=== PATIENT | male | born 1940 | race Caucasian/White ===

== ENCOUNTER 2016-09-22 07:48 | Day surgery (SDC) | payer BC, MEDICARE ==
--- NOTE | ~2016-09-22 | EGD ---
EGD REPORT [facility] [address] [address] NAME: MAK WALDRON : 40 STATUS : REG [facility] PAT#: [id number] AGE: 75 ADM/REG DATE : 09/22/16 MR#: [id number] REPORT SERV DATE: 09/22/16 DICTATED BY: LUDA INIGUEZ DATE: 09/22/16 REPORT STATUS : Draft [facility]ANS[facility]: [facility] DATE: 09/22/16 Endoscopy Center Patient Name: Mak Waldron Date of : 1940 Attending MD: LUDA INIGUEZ MD Procedure Date No Time: 09/22/2016 Procedure: Colonoscopy Indications: Constipation Referring MD: ANA BAIG MD Medicines: See the Anesthesia note for documentation of the administered medications Complications: Cough, dropped sats Procedure: Pre-Anesthesia Assessment: - ASA Grade Assessment: III - A patient with severe systemic disease. After I obtained informed consent, the scope was passed under direct vision. Throughout the procedure, the patient's blood pressure, pulse, and oxygen saturations were monitored continuously. The PCF [id number] was introduced through the anus and advanced to the cecum, identified by appendiceal orifice and ileocecal valve. The colonoscopy was technically difficult and complex due to significant looping. The patient tolerated the procedure well. The quality of the bowel preparation was adequate. Some spasm. Findings: The perianal and digital rectal examinations were normal. Diverticula were found in the sigmoid colon. Internal hemorrhoids were found during retroflexion and were small. Impression: - Diverticulosis in the sigmoid colon. - Internal hemorrhoids. Recommendation: - Patient has a contact number available for emergencies. The signs and symptoms of potential delayed complications were discussed with the patient. Return to normal activities tomorrow. Written discharge instructions were provided to the patient. - Regular diet. - Repeat colonoscopy is not recommended for surveillance. - Return to my office in 1 year. - Continue present medications. Procedure Code(s): --- Professional --- EGD REPORT [facility] [address] [place], [place] [address] [place]. [address] NAME: AMK WALDRON : [birth year] STATUS : REG [facility]#: [id number] AGE: 75 ADM/REG DATE : 09/22/16 MR#: [id number] REPORT SERV DATE: 09/22/16 DICTATED BY: LUDA INIGUEZ DATE: 09/22/16 REPORT STATUS : Draft TRANSCRIBED BY: Immediately DATE: 09/22/16 41569, Colonoscopy, flexible, proximal to splenic flexure; diagnostic, with or without collection of specimen(s) by brushing or washing, with or without colon decompression (separate procedure) Diagnosis Code(s): --- Professional --- K64.8, Other hemorrhoids K57.30, Diverticulosis of large intestine without perforation or abscess without bleeding K59.00, Constipation, unspecified CPT copyright 2013 [employer]. All rights reserved. The codes documented in this report are preliminary and upon cnc lathe machinist review may be revised to meet current compliance requirements. Luda Iniguez MD LUDA INIGUEZ MD 09/22/2016 9:57 AM This report has been signed electronically. Number of Addenda: 0 Note Initiated On: 09/22/2016 9:24 AM Scope Withdrawal Time 0 hours 6 minutes 37 seconds [address] [place] [address]
--- NOTE | ~2016-09-22 | EGD ---
EGD REPORT [facility] [address] [address] NAME: MAK WALDRON : 40 STATUS : REG [facility]#: [id number] AGE: 75 ADM/REG DATE : 09/22/16 MR#: [id number] REPORT SERV DATE: 09/22/16 DICTATED BY: LUDA INIGUEZ DATE: 09/22/16 REPORT STATUS : Draft TRANSCRIBED BY: [employer] [facility] DATE: 09/22/16 Endoscopy Center Patient Name: Mak Waldron Date of : 1940 Attending MD: LUDA INIGUEZ MD Procedure Date No Time: 09/22/2016 Procedure: Upper GI endoscopy Indications: Follow-up of Levi's esophagus Referring MD: ANA BAIG MD Medicines: See the Anesthesia note for documentation of the administered medications Complications: No immediate complications. Procedure: Pre-Anesthesia Assessment: - ASA Grade Assessment: III - A patient with severe systemic disease. After obtaining informed consent, the endoscope was passed under direct vision. Throughout the procedure, the patient's blood pressure, pulse, and oxygen saturations were monitored continuously. The GIF H190 [id number] was introduced through the mouth, and advanced to the second part of duodenum. The upper GI endoscopy was accomplished without difficulty. The patient tolerated the procedure well. Findings: The examined duodenum was normal. The entire examined stomach was normal. The cardia and gastric fundus were normal on retroflexion. A 9 cm hiatus hernia was present. There were esophageal mucosal changes consistent with short-segment Levi's esophagus present in the lower third of the esophagus. The maximum longitudinal extent of these mucosal changes was 2 cm in length. Biopsies were taken with a cold forceps for histology. Impression: - Normal examined duodenum. - Normal stomach. - Hiatus hernia. 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 Biopsied. Recommendation: - Patient has a contact number available for emergencies. The signs and symptoms of potential delayed complications were discussed with the patient. Return to normal activities tomorrow. Written discharge instructions were provided to the patient. EGD REPORT [address] [address] NAME: MAK WALDRON : 40 STATUS : REG [facility]#: [id number] AGE: 75 ADM/REG DATE : 09/22/16 MR#: [id number] REPORT SERV DATE: 09/22/16 DICTATED BY: LUDA INIGUEZ DATE: 09/22/16 REPORT STATUS : Draft TRANSCRIBED BY: [employer] DATE: 09/22/16 - Regular diet. - Continue present medications. - Repeat the upper endoscopy in 3 years for surveillance. - FOR YOUR BIOPSY RESULTS: Please go to [email or web address] and register to receive your results via the portal. Your biopsy results will be posted there in about 7 to 10 days. IF you do not see result in 10 days, call office. Procedure Code(s): --- Professional --- 36408, Esophagogastroduodenoscopy, flexible, transoral; with biopsy, single or multiple Diagnosis Code(s): --- Professional --- K22.70, Levi's esophagus without dysplasia K44.9, Diaphragmatic hernia without obstruction or gangrene CPT copyright 2013 [employer]. All rights reserved. The codes documented in this report are preliminary and upon bus attendant review may be revised to meet current compliance requirements. Luda Iniguez MD LUDA INIGUEZ MD 09/22/2016 9:39 AM This report has been signed electronically. Number of Addenda: 0 Note Initiated On: 09/22/2016 9:26 AM Scope Withdrawal Time 0 hours 0 minutes 0 seconds [address] [id number]
[~2016-09-22 07:48] MED LIST: ASAB PO; GLUCOTRO10 PO; LIPITOR40 PO; PREV30 PO; PRINZIDE1 TA1 PO
== END 2016-09-22 23:59 | disposition home or self-care (01) ==
LOC: DMU 07:48
PROVIDERS: Internal Medicine Gastroenterology
PROC: 0DB38ZX Excision of Lower Esophagus, Via Natural or Artificial Opening Endoscopic, Diagnostic (ICD-10-PCS; principal; 2016-09-22 09:30)
PROC: 0DJD8ZZ Inspection of Lower Intestinal Tract, Via Natural or Artificial Opening Endoscopic (ICD-10-PCS; 2016-09-22 09:30)
DX: K22.70 Barrett's esophagus without dysplasia (principal); K44.9 Diaphragmatic hernia without obstruction or gangrene; K57.30 Diverticulosis of large intestine without perforation or abscess without bleeding; I25.2 Old myocardial infarction; K64.8 Other hemorrhoids; I25.10 Atherosclerotic heart disease of native coronary artery without angina pectoris; K21.9 Gastro-esophageal reflux disease without esophagitis; Z79.84 Long term (current) use of oral hypoglycemic drugs; Z79.899 Other long term (current) drug therapy; Z87.891 Personal history of nicotine dependence; M17.0 Bilateral primary osteoarthritis of knee; Z90.49 Acquired absence of other specified parts of digestive tract; Z98.890 Other specified postprocedural states
CPT/HCPCS: 71010; 82962; 88305; 94640